=== PATIENT | male | born 1940 | race Caucasian/White ===

== ENCOUNTER 2017-06-16 20:03 | Inpatient (IN) | payer MEDICARE ==
[~2017-06-16] VITALS: Ht 162.6 cm; Wt 71.1 kg
[2017-06-16] MEDS ORDERED: SODIUM CHLORI1000 MG PO (20:33)
[2017-06-16] MEDS ORDERED: PRILOSEC OTC20 MG PO (20:34)
[2017-06-16] MEDS ORDERED: LORAZEPAM1 MG PO (21:17)
[2017-06-16] MEDS ORDERED: HYDROXYZINE HCL25 MG PO (21:17)
--- NOTE | 2017-06-16 23:30 | NUR ---
PT ARRIVES TO ICU ROOM 127 ADMITTED FOR HYPONATREMIA. PT UP TO VOID FROM STRETCHER, ABLE TO VOID 400ML CLEAR YELLOW URINE, URINE SPECIMEN SENT TO LAB. PT DENIES WEAKNESS, DIZZINESS OR LIGHTHEADEDNESS WHEN UP. PT TO BED, STEADY ON FEET. ASSESSMENT DONE. NEURO CHECKS DONE, PT TALKS VERY SLOWLY AT TIMES, OTHER TIMES IS ABLE TO TALK AND ANSWER QUESTIONS APPROPRIATELY. PT ALERT AND ORIENTED X4. DISCUSSED PLAN OF CARE WITH PT, INCLUDING FLUID RESTRICTION OF 1000ML. PT IN AGREEMENT, QUESTIONS ANSWERED. PT GIVEN SOME YOGURT FOR A SNACK. SIDE RAILS UPX4, CALL LIGHT IN LAP AND BED ALARM ON.
--- NOTE | 2017-06-17 01:32 | NUR ---
PT RESTING WITH EYES CLOSED, RESP EVEN UNLBORED. HR 63, RR 12, SPO2 98%/RA. BED ALARM ON, SIDE RAILS UPX4.
--- NOTE | 2017-06-17 02:20 | NUR ---
PT UP OUT OF BED, SETTING OFF BED ALARM. UNABLE TO EXPRESS HIS NEED, JUST LOOKS AROUND WHEN ASKED WHAT HE NEEDED. ASKED IF HE NEEDED TO VOID AND HE SAID YES, VOIDED 400 ML CLEAR URINE INTO URINAL THEN BACK TO BED WITH BED RAILS UPX4 AND BED ALARM ON.
--- NOTE | 2017-06-17 04:00 | NUR ---
PT SLEEPING, RESP EVEN AND UNLABORED, HR 58.
--- NOTE | 2017-06-17 05:15 | NUR ---
PT AWAKENS EASILY FOR ASSESSMENT, UNCHANGED FROM PRIOR. NO NEEDS AT THIS TIME, BACK TO SLEEP.
--- NOTE | 2017-06-17 05:57 | NUR ---
LAB IN TO DRAW
--- NOTE | 2017-06-17 07:06 | NUR ---
PT CONTINUES TO SLEEP, HR 56, RR 12, SPO2 100%.
--- NOTE | 2017-06-17 07:30 | NUR ---
STOOD AT BEDSIDE TO VOID. NURSE ASSISTING PATIENT. PATIENT IS FAIRLY STABLE ON FEET. BACK TO BED WITH ASSIST.
--- NOTE | 2017-06-17 08:00 | NUR ---
DR. DOMINGUEZ HERE TO SEE PATIENT. ORDERS RECIEVED. PATIENT IS SLOW TO RESPOND TO QUESTIONS ASKED.
--- NOTE | 2017-06-17 09:00 | NUR ---
sitting up in bed for breakfast.
--- NOTE | 2017-06-17 13:26 | NUR ---
RESTFUL, DENIES PROBLEMS.
--- NOTE | 2017-06-17 13:40 | NUR ---
IS AWAKE. NOT ABLE TO ANSWERE QUESTIONS. WILL START TO TALK, NOT ABLE TO TRACK ON WHAT IS BEING SAID. HAVING DIFFICULTY FOLLOWING COMMANDS. ATTEMPTING TO SAY WORDS, BUT NOT ABLE. WILL NOTIFY .
--- NOTE | 2017-06-17 13:53 | NUR ---
UP TO VOID. AMBULATED TO BR TO VOID 400 ML OF CLEAR YELLOW URINE. IS STABLE ON FEET.
--- NOTE | 2017-06-17 14:00 | NUR ---
DR. DOMINGUEZ NOTIFIED OF PATIENT CURRENT STATUS. ORDERS RECIEVED TO DRAW LABS AT THIS TIME.
--- NOTE | 2017-06-17 15:45 | NUR ---
UP TO BR TO VOID AND EXPELL MED SOFT STOOL. UPON RETURN TO BED, IS RETCHING.
--- NOTE | 2017-06-17 16:05 | NUR ---
ZOFRAN 4 MG IV GIVEN.
--- NOTE | 2017-06-17 17:03 | EKG ---
[facility] [address] [place] [address] Signed Normal sinus rhythm Incomplete right bundle branch block Borderline ECG No previous ECGs available Confirmed by KINZA DOMINGUEZ MD ([id number]) on 06/17/2017 5:03:05 PM Electronically Signed By: KINZA DOMINGUEZ MD 06/17/17 1703 PATIENT NAME: PABLO ZHOU Electrocardiogram DATE OF : 38 PHYSICIAN: KINZA DOMINGUEZ MD REPORT #: [id number] REPORT IS CONFIDENTIAL AND NOT TO BE RELEASED WITHOUT AUTHORIZATION
--- NOTE | 2017-06-17 17:15 | NUR ---
CONTINUES TO HAVE BLANK LOOK IN EYE AT TIMES.
--- NOTE | 2017-06-17 18:34 | NUR ---
DAUGHTER HERE AND WISHES TO TALK TO DR. DOMINGUEZ.
--- NOTE | 2017-06-17 19:03 | NUR ---
STAT BMP ORDERED AND DRAWN. PATIENT CONTINUES TO HAVE DIFFICULTY FOLLOWING COMMANDS, DIRECTION AND RESPONDING TO QUESTIONS,
--- NOTE | 2017-06-17 19:35 | NUR ---
PT CURRENTLY SLEEPING IN BED WITH ALARM ON. SCD'S IN PLACE. PT FAMILY JUST LEFT THE FACILITY. FULL REPORT GIVEN BY VIDAL ARTEAGA. VITALS STABLE AT THIS TIME.
--- NOTE | 2017-06-17 20:05 | NUR ---
PT UP TO TOILET WITH ONE PERSON ASSIST WITH IV POLE. PT STEADY ON HIS FEET. PT APPEARS TO HAVE DECREASED COGNITION, UNABLE TO UNDERSTAND REQUESTS, DIFFICULTY FOLLOWING DIRECTION, ONLY ABLE TO ANSWER DIRECT YES OR NO QUESTIONS. PT COOPERATIVE AND PLEASANT. VITAL WNL. PT MOVED TO ROOM 128 FOR CLOSER OBSERVATION DUE TO IMPULSIVE AMBULATION REPORTED BY PRIOR SHIFT. BED ALARM IS ON. ALL PT BELONGINGS MOVED TO NEW ROOM.
--- NOTE | 2017-06-17 20:18 | NUR ---
IV SITE INTACT, NO REDNESS OR SWELLING NOTED, PT SAYS SITE IS UNCOMFORTABLE "SOMETIMES", FLUID INFUSING EASILY.
--- NOTE | 2017-06-17 20:18 | NUR ---
IV RATE CHANGED TO 46 ML/HR PER .
--- NOTE | 2017-06-17 22:15 | NUR ---
TWO ATTEMPTS MADE TO START ADDITIONAL IV SITE AND DRAW BLOOD FOR 2200 LAB SAMPLE. UNSUCESSFUL.
--- NOTE | 2017-06-17 22:49 | NUR ---
DAUGHTER DARIA HERE AT THE BEDSIDE, SHE HAS PT WALLET AND KEYS AND IS TAKING THEM WITH HER.
--- NOTE | 2017-06-17 22:49 | NUR ---
CORRECTION - PT'S DAUGHTER IS NAMED SHERRILL HUFF.
--- NOTE | 2017-06-17 23:20 | NUR ---
IV SITE IN LEFT WRIST INFILTRATED. XIOMARA FROM ER ABLE TO START 22 GUAGE IN RT WRIST/HAND AREA, IV FLUIDS RESTARTED.
--- NOTE | 2017-06-17 23:35 | NUR ---
ALLYSSA FROM LAB CALLED WITH CRITICAL LAB VALUE FOR SODIUM OF 119. UPDATED, ORDER GIVEN TO HOLD IV FLUIDS FOR NOW AND CALL WITH THE 0100 LAB RESULTS. CALLED DAUGHTER OF CYNTHIA HUFF UPDATED HER ON SODIUM OF 119 SHE DOES NOT WANT TO BE CALLED WITH THE 0100 LAB RESULTS UNLESS THEY ARE WORSE THAN 119.
--- NOTE | 2017-06-18 01:25 | NUR ---
ADDITIONAL STAFF NEEDED IN ROOM TO ASSIST WITH KEEPING PT STILL FOR BLOOD DRAW.
--- NOTE | 2017-06-18 01:45 | NUR ---
CALLED TO GIVE UPDATE TO PT STATUS. PT NOW HAS AGRESSIVE BEHAVIORS TOWARDS STAFF BLOOD SAMPLES ARE BEING ATTEMPTED. PT KICKING AND HITTING AT STAFF. ORDER GIVEN FOR FOUR POINT SOFT RESTRAINTS BY .
--- NOTE | 2017-06-18 02:16 | NUR ---
PT NOW CALM, STILL CONFUSED, ORIENTED ONLY TO HIS NAME. PT ABLE TO ANSWER SIMPLE YES AND NO QUESTIONS. PT IN BED WITH FOUR POINT RESTRAINTS FOR SAFETY. PT STILL ATTEMPTING TO GET OUT OF BED, NOT ABLE TO FOLLOW DIRECTION.
--- NOTE | 2017-06-18 02:40 | NUR ---
CALLED FOR AN UPDATE ON PT STATUS. PT SODIUM LEVEL IS 119, ORDER GIVEN TO RESTART IV FLUIDS AT 46 ML/HR, AND TO REDRAW LABS THREE HOURS FROM TIME OF FLUID RESTART.
--- NOTE | 2017-06-18 02:45 | NUR ---
PT NOW OUT OF RESTRAINTS.
--- NOTE | 2017-06-18 02:58 | NUR ---
PT UP AMBULATED TO COMMODE, ABLE TO VOID, THEN ABULATES BACK TO BED WITH ONE PERSON STANDBY ASSIST. PT COOPERATIVE AND POLITE. IV FLUIDS RESTARTED PER 'S ORDER AT 46 ML/HR. PT DENIES NAUSEA, AND PAIN.
--- NOTE | 2017-06-18 05:00 | NUR ---
PT SLEEPING SOUNDLY AND SNORING. HR IN THE 50'S-60'S, IV SITE INTACT, NO REDNESS OR SWELLING NOTED, FLUIDS INFUSING EASILY.
--- NOTE | 2017-06-18 06:10 | NUR ---
LAB DRAW SUCESSFUL BY RN. PT RACHEAL WELL. PT ABLE TO COMMUNICATE BETTER THAN FOUR HOURS PRIOR. APPEARS TO HAVE IMPROVED COGNITION.
--- NOTE | 2017-06-18 06:12 | NUR ---
PT NOT TOLLERANT OF BLOOD PRESSURE READING, UNABLE TO GET ACCURATE READING.
--- NOTE | 2017-06-18 06:15 | NUR ---
CALLED FOR UPDATE ON PT STATUS. REPORTED PT IMPROVED COGNITION AND VERBAL COMMUNICATION, WELL NON-VIOLENT BEHAVIOR TOWARD STAFF DURING LAB DRAW. ORDER GIVEN TO STOP IV INFUSION UNTIL LAB VALUES ARE BACK. IV STOPPED.
--- NOTE | 2017-06-18 07:39 | NUR ---
BEDSIDE REPORT RECEIVED FROM CHANDLER YOUNG. PT SLEEPING AT THIS TIME. HEART RATE IN THE 50s, SINUS ELVA. BED ALARM ON FOR SAFETY. DR. DOMINGUEZ UPDATED ON PT'S MOST RECENT SODIUM LEVEL OF 121 AND NO FURTHER ORDERS REC'D AT THIS TIME. CONTINUE TO MONITOR.
--- NOTE | 2017-06-18 07:53 | NUR ---
DR. DOMINGUEZ IN TO SEE PATIENT. PT VERY CONFUSED. ANSWERS QUESTIONS VERY SLOWLY, AND ONLY ANSWERS WHEN HIS BIRTHDAY IS. PT NOT ABLE TO STATE WHERE HE IS OR WHAT THE YEAR IS, BUT WITH SOME PROMPTING, ABLE TO REPEAT "ALEXI." PT TELLS THIS RN THAT HE IS FROM [place]. PT REMAINS RESTING IN BED AT THIS TIME, YAWNING. PT IS ON ROOM AIR. LUNGS ARE CLEAR TO AUSCULTATION. HEART RATE IN THE 50-60s AND BP THIS AM IS 100/57. SP01 IS 99% ON ROOM AIR. BED ALARM WILL REMAIN ON FOR SAFETY. PT TO BE MONITORED CLOSELY HE REMAINS CONFUSED. 3% SALINE RESTARTED AT 31 ML/HR AT THIS TIME PER DR. DOMINGUEZ'S VERBAL ORDER.
--- NOTE | 2017-06-18 08:56 | NUR ---
PATIENT PULLS IV OUT OF ARM. NEW IV STARTED IN LEFT WRIST AREA, 22 G. PT TOLERATED FAIR. PT UP TO BATHROOM TO VOID. PT NOW SITTING IN CHAIR AND EATING BREAKFAST. PT ABLE TO STATE THE YEAR NOW AND APPEARS MORE COHERENT AND CONVERSIVE. PT ABLE TO STATE "SODIUM" WHEN ASKED WHY HE IS IN THE HOSPITAL. CONTINUE TO MONITOR CLOSELY.
--- NOTE | 2017-06-18 09:30 | NUR ---
PATIENT'S DAUGHTER NKECHI AND HER IN ROOM TO SEE PATIENT. PT REMAINS SITTING IN CHAIR AND HAPPY TO SEE HIS FAMILY, HOWEVER DAUGHTER TELLS THIS RN THAT PATIENT STILL REMAINS CONFUSED BECAUSE HE ASKED QUESTIONS ABOUT THEIR HOUSE BEING SOLD, WHICH SEEMS TO BE AN OLDER TOPIC OF DISCUSSION. PT ATE 75% OF HIS BREAKFAST AND IS SIPPING ON COFFEE AT THIS TIME. NKECHI REQUESTING TO SPEAK WITH DR. DOMINGUEZ AT SOME POINT TODAY. CONTINUE TO MONITOR CLOSELY.
--- NOTE | 2017-06-18 10:05 | NUR ---
DR. DOMINGUEZ BACK IN ROOM TO TALK WITH PATIENT AND HIS DAUGHTER. PT MORE AND MORE ALERT AND CONVERSIVE AT THIS TIME AND MORE ORIENTED THAN BEFORE, BUT SLIGHTLY STILL CONFUSED ABOUT SOME THINGS. PLAN TO HAVE PATIENT TAKE A SHOWER AT SOME POINT TODAY. CONTINUE TO MONITOR.
--- NOTE | 2017-06-18 11:19 | NUR ---
DR. DOMINGUEZ CALLED AND ORDER REC'D TO INCREASE IVF TO 46 ML/HR SODIUM LEVEL IS STILL 121 AT THE 1000 BLOOD DRAW. PT AND DAUGHTER UPDATED. PT TO ALSO RECEIVE SOME POTASSIUM REPLACEMENT. CONTINUE TO MONITOR.
--- NOTE | 2017-06-18 11:49 | NUR ---
PATIENT TOLERATES POTASSIUM PILLS CUT IN HALF, AND TAKES THEM WITH HIS APPLESAUCE. PT HAS A HISTORY OF A HARD TIME SWALLOWING PILLS, AND HAS HAD A PROCEDURE ON HIS STOMACH AND ESOPHAGUS WHICH LIMITS HIS ABILITY TO VOMIT.
--- NOTE | 2017-06-18 15:00 | NUR ---
PATIENT'S SODIUM FROM 1400 BLOOD DRAW NOTED TO BE 122. DISCUSSED WITH DR. RUSSELL PLAN TO KEEP PT'S IVF INFUSING AT 46 ML/HR UNTIL 1700, AND THEN RE-CHECK A SODIUM LEVEL AT 1800. PT'S DAUGHTER REMAINS IN ROOM VISITING WITH PATIENT. CONTINUE TO MONITOR.
--- NOTE | 2017-06-18 17:48 | NUR ---
IVF TURNED OFF OF AT 1700. PT'S DINNER ORDERED. PT AMBULATED TO SHOWER ROOM AND SHOWERS INDEPENDELTY WITHOUT DIFFICULTY - THIS RN STAYS AT DOOR TO ENSURE PATIENT'S SAFETY. PT HAS REMAINED ORIENTED AND IS VERY CALM AND AWARE OF THE SITUATION THAT BROUGHT HIM INTO THE HOSPITAL. PT NOW EATING HIS DINNER IN CHAIR AND TOLERATING WELL. PT IS DOING WELL WITH FLUID RESTRICTION, AND STILL HAS PLENTY OF FLUIDS TO GET HIM THROUGH THE NIGHT. HEART RATE REMAINS IN THE 50-60s. LAB DRAW TO BE DRAWN AT [address] RUSSELL TO BE UPDATED ON SODIUM LEVEL SOON RESULT IS AVAILABLE. CONTINUE TO MONITOR. PT'S DAUGHTER HAS LEFT FOR NOW BUT WILL RETURN AFTER A WHILE.
--- NOTE | 2017-06-18 19:15 | NUR ---
PATIENT CONTINUES TO EAT HIS DINNER SLOWLY. PT'S 1800 LABS DRAWN AT 1900. PT REMAINS SITTING IN CHAIR. PT HAS REMAINED ALERT AND ORIENTED THIS AFTERNOON AND COOPERATIVE. PT'S DAUGHTER TO RETURN THIS EVENING.
--- NOTE | 2017-06-18 19:35 | NUR ---
PT SITTING UP IN CHAIR, FINISHED EATING DINNER, ABLE TO CONVERS EASILY. PT ALERT AND ORIENTED X3, STILL SOME CONFUSION ON EVENTS. PT DENIES PAIN, NAUSEA, AND SOB AT THIS TIME. PT DAUGHTER AT THE BEDSIDE.
--- NOTE | 2017-06-18 19:45 | NUR ---
CALLED TO UPDATE ON PT LAB RESULT FOR SODIUM LEVEL OF 123. STATES SHE WILL CALL BACK WITH NEW ORDERS SHORTLY.
--- NOTE | 2017-06-18 20:15 | NUR ---
IV SITE DC'D DUE TO INFILTRATION UNABLE TO FLUSH, TIP OF CATH INTACT, NO REDNESS OR SWELLING. PT BACK TO BED FROM CHAIR. PT ABLE TO AMBULATE INDEPENDENTLY. BED IN LOW POSITION, BED RAILS UP X3, CALL LIGHT WITHIN REACH. PT REFUSES SCD'S AT THIS TIME.
--- NOTE | 2017-06-18 22:40 | NUR ---
PT SLEEPING SOUNDLY IN BED, CALL LIGHT WITHIN REACH. RESP EVEN AND UNLABORED, HR 60'S-70'S.
--- NOTE | 2017-06-18 23:33 | NUR ---
PT UP AMBULATED TO THE BATHROOM, ABLE TO USE THE URINAL TO VOID 850 ML CLEAR YELLOW URINE. PT THEN WASHED HIS HANDS AND FACE, BRUSHED HIS TEETH AND COMBED HIS HAIR. PT AMBULATED BACK TO BED. VITALS ALL WITHIN NORMAL. PT DENIES NAUSEA, PAIN, AND SOB AT THIS TIME. PT COGNITION REMAINS CONSISTANT WITH BEGINNING OF SHIFT.
--- NOTE | 2017-06-19 02:02 | NUR ---
PT UP AMBULATING TO BATHROOM INDEPENDENTLY, ABLE TO VOID 700 ML CLEAR YELLOW URINE INTO THE URINAL. PT BACK TO BED, DENIES PAIN, NAUSEA, AND SOB. PT VITALS WNL.
--- NOTE | 2017-06-19 06:05 | NUR ---
PT UP AMBULATED TO BATHROOM, ABLE TO VOID INTO THE URINAL. PT BACK TO BED. PT ALERT X3, ABLE TO ANSWER QUESTIONS EASILY, STILL DISORIENTED TO EVENT, REQUIRES REMINDERS AND PROMPTS, IS CHEERFUL AND POLITE. PT DENIES PAIN, STATES "I SLEPT REALLY GOOD", DENIES NAUSEA AND SOB. STARTED 22 G IV IN BACK OF LEFT WRIST, LAB SAMPLES DRAWN AT THIS TIME, PT RACHEAL WELL. SITE INTACT, FLUSHES EASILY. VITALS WNL. PT DECIDED TO TRY TO SLEEP MORE. CALL LIGHT WITHIN REACH, BED IN LOW POSITION.
--- NOTE | 2017-06-19 07:42 | NUR ---
BEDSIDE REPORT RECEIVED FROM CHANDLER YOUNG. PT RESTING IN BED DURING THIS TIME. PT ALERT, ORIENTED, AND ANSWERING ALL QUESTIONS APPROPRIATELY. PT AMBULATES INTO BATHROOM TO VOID AND IS STEADY ON FEET. BREAKFAST ORDERED FOR PATIENT. PT DOES NOT RECALL ALL EVENTS OF YESTERDAY, BUT DOES REMEMBER SOME OF OUR CONVERSATION FROM YESTERDAY. PT'S SODIUM LEVEL THIS AM IS 128. PLAN IS FOR PATIENT TO D/C HOME TODAY WITH HIS DAUGHTER. ASSESSMENT IS COMPLETE AND MOSTLY BENIGN. DR. RUSSELL NOW IN ROOM TO EVALUATE PATIENT. CONTINUE TO MONITOR.
[2017-06-19] MEDS ORDERED: SODIUM CHLORIDE1 GM PO (07:56)
[2017-06-19] MEDS ORDERED: LIDODERM1 EACH TD (07:56)
--- NOTE | 2017-06-19 08:22 | NUR ---
PATIENT SITTING UP IN CHAIR EATING HIS BREAKFAST. PT HAS DISCHARGE ORDERS ONCE HIS DAUGHTER ARRIVES TODAY. DISCUSSED THIS AT LENGTH WITH PATIENT.
--- NOTE | 2017-06-19 10:23 | NUR ---
PATIENT READY TO D/C HOME AT 0945. THOROUGH DISCHARGE INSTRUCTIONS WENT OVER WITH PATIENT AND HIS DAUGHTER BY THIS RN, PHARMACIST, AND DR. RUSSELL. PT GIVEN HIS NOON DOSE OF HIS SODIUM CHLORIDE TABLET AND HIS EVENING DOSE. PATIENT'S BLOOD PRESSURE PRIOR TO D/C FOUND TO BE LOW AT 81/59. DR. RUSSELL NOTIFIED AND PATIENT D/C HOME. PT ABLE TO AMBULATE IN ROOM INDEPENDENTLY, SHAVE, AND DRESS HIMSELF PRIOR TO D/C HOME. PT GIVEN W/C RIDE OUT WITH THIS RN ACCOMPANYING. PT'S DAUGHTER UPDATED ON PT'S MOST RECENT BLOOD PRESSURES. PT IS TO HAVE A BLOOD DRAW TOMORROW FOR HIS SODIUM LEVEL, AND HAS AN APPOINTMENT TO FOLLOW UP WITH DR. JOSHI IN [place] ON MONDAY. PT GIVEN A FLUID RESTRICTION CHART TO HELP KEEP HIM ORGANIZED AT HOME, SINCE HE IS RECOMMENDED TO HAVE A 1000 ML FLUID RESTRICTION PER DAY. IV D/C FROM LEFT WRIST, CATH INTACT, SITE WITHOUT REDNESS. LIDOCAINE PATCH REMAINS ON PT'S BACK OVER HIS SORE AREA FROM HIS RADIATON FROM CANCER TREATMENT. PT LEFT FACILITY AT 1015.
== END 2017-06-19 10:10 | disposition home or self-care (01) | DRG 640 ==
LOC: ED 20:03 → CCU 22:37
PROVIDERS: ADMIT Internal Medicine
DX: E87.1 Hypo-osmolality and hyponatremia (principal); G93.41 Metabolic encephalopathy; E22.2 Syndrome of inappropriate secretion of antidiuretic hormone; D49.1 Neoplasm of unspecified behavior of respiratory system; Z85.820 Personal history of malignant melanoma of skin; G93.9 Disorder of brain, unspecified
CPT/HCPCS: 36415; 70450; 80048; 80053; 81001; 82570; 83735; 83930; 83935; 84133; 84300; 84550; 85025; 85610; 85730; 93005; 93010; J2405; J7040